=== PATIENT | male | born 1970 | race Caucasian/White ===

== ENCOUNTER 2016-09-25 01:55 | Emergency (ER) | payer BC ==
[2016-09-25] MEDS ORDERED: Acetaminophen/HYDROcodone 325-5 MG Tab PO STA (02:05)
[2016-09-25] MEDS ORDERED: Amoxicillin/Clavulanate K 875-125 MG Tab PO ONE (02:06)
--- NOTE | 2016-09-25 02:09 | EDM.PDOC ---
ED HPI GENERAL MEDICAL PROBLEM - General Stated Complaint: TOOTHACHE Time Seen by Provider: 09/25/16 01:55 Source of Information: Reports: Patient History Limitations: Reports: No Limitations - History of Present Illness INITIAL COMMENTS - FREE TEXT/NARRATIVE: 46 years old w m -smoker-came to the ed with upper and lower tooth ache. 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, NSAIDS - Related Data Allergies Allergy/AdvReac Type Severity Reaction Status Date / Time cephalexin monohydrate Allergy Swelling Verified 03/21/16 00:25 [From Keflex] hydrochlorothiazide Allergy Blisters Verified 03/21/16 00:25 Home Meds: Home Meds metFORMIN [Glucophage] 1,000 mg PO BID 10/04/13 [History] Ibuprofen [Advil] 200 mg PO ASDIRECTED PRN 03/21/16 [History] glipiZIDE [Glipizide Xl] 10 mg PO ASDIRECTED 03/21/16 [History] Amoxicillin/Potassium Clav [Augmentin 875-125 Tablet] 1 each PO BID #20 tablet 09/25/16 [Rx] Past Medical History HEENT History: Reports: Hard of Hearing, Impaired Vision Cardiovascular History: Reports: High Cholesterol, Hypertension Respiratory History: Reports: Asthma Genitourinary History: Reports: Other (See Below) Other Genitourinary History: Kidney stones. Musculoskeletal History: Reports: Arthritis, Back Pain, Chronic Psychiatric History: Reports: Depression Endocrine/Metabolic History: Reports: Diabetes, Type II Other Endocrine/Metabolic History: Takes PO meds for diabetes. - Past Surgical History Musculoskeletal Surgical History: Reports: Other (See Below) Social & Family History - Tobacco Use Smoking Status *Q: Current Every Day Smoker Years of Tobacco use: 25 Packs/Tins Daily: 0.5 - Alcohol Use Days Per Week of Alcohol Use: 1 Number of Drinks Per Day: 2 Total Drinks Per Week: 2 - Recreational Drug Use Recreational Drug Use: No - Living Situation & Occupation Living situation: Reports: Occupation: Other ED ROS ENT - Review of Systems Review Of Systems: See Below Constitutional: Reports: No Symptoms HEENT: Reports: Dental Pain Respiratory: Reports: No Symptoms Cardiovascular: Reports: No Symptoms Endocrine: Reports: No Symptoms GI/Abdominal: Reports: No Symptoms : Reports: No Symptoms Musculoskeletal: Reports: No Symptoms Skin: Reports: No Symptoms Neurological: Reports: No Symptoms Psychiatric: Reports: No Symptoms Hematologic/Lymphatic: Reports: No Symptoms Immunologic: Reports: No Symptoms ED EXAM, ENT - Physical Exam Exam: See Below Exam Limited By: No Limitations General Appearance: Alert, WD/WN, Mild Distress Eye Exam: Bilateral Eye: Normal Inspection Ears: Normal External Exam Nose: Normal Inspection Mouth/Throat: Dental Pain, Dental Tenderness, Gum Swelling (gingivitis) Head: Atraumatic, Normocephalic Neck: Normal Inspection, Supple, Non-Tender, Full Range of Motion Respiratory/Chest: No Respiratory Distress, Lungs Clear Cardiovascular: Normal Peripheral Pulses, Regular Rate, Rhythm GI/Abdominal: Normal Bowel Sounds, Soft, Non-Tender (Male) Exam: Deferred Rectal (Males) Exam: Deferred Back: Normal Inspection, Full Range of Motion Extremities: Normal Inspection, Normal Range of Motion, Non-Tender Neurological: Alert, Oriented, CN II-XII Intact, Normal Cognition, Normal Gait Psychiatric: Normal Affect, Normal Mood Skin: Warm, Dry, Intact, Normal Color, No Rash Lymphatic: No Adenopathy Course - Vital Signs Text/Narrative:: 46 years old w m -smoker-came to the ed with upper and lower tooth ache. No other acute medical issue PE: Poor dentition, gum swelling, dental decay. Impression: Poor dentition, gum swelling, dental decay Tx: [place], Augmentin Reexam: Improved Plan: D/C with instructions Last Recorded V/S: Last Vital Signs Temp 36.4 C 09/25/16 02:19 Pulse 92 09/25/16 02:19 Resp 18 09/25/16 02:19 BP 131/89 09/25/16 02:19 Pulse Ox - Orders/Labs/Meds Meds: Medications Discontinued Medications Generic Name Dose Route Start Last Admin Trade Name Freq PRN Reason Stop Dose Admin Hydrocodone Bitart/Acetaminophen 1 tab 09/25/16 02:05 [place] 325-5 Mg PO 09/25/16 02:06 ONETIME STA Amoxicillin/Clavulanate Potassium 1 tab 09/25/16 02:06 Augmentin 875 Mg/125 Mg PO 09/25/16 02:07 ONETIME ONE Departure - Departure Time of Disposition: 02:09 Disposition: Home, Self-Care 01 Condition: Good Clinical Impression: Poor dentition, Dental decay, Gingivitis - Discharge Information Prescriptions: Amoxicillin/Potassium Clav [Augmentin 875-125 Tablet] 1 each PO BID #20 tablet Referrals: Rodolfo Cruz MD [Primary Care Provider] - Additional Instructions: Please f/u with your dentist as soon as possible. Please take [place] for sever pain only, please take Augmentin as recommended, please quit tobacco use. Please come back if your symptoms get worse acutely
[2016-09-25 02:25] VITALS: BP 131/89
[2016-09-25] MEDS ORDERED: Acetaminophen/HYDROcodone 325-5 MG Tab PO ONE (02:34)
== END 2016-09-25 03:00 | disposition home or self-care (01) ==
LOC: FB.ED 01:55
DX: K02.9 Dental caries, unspecified (principal); K05.10 Chronic gingivitis, plaque induced; K00.7 Teething syndrome; E78.00 Pure hypercholesterolemia, unspecified; I10 Essential (primary) hypertension; J45.909 Unspecified asthma, uncomplicated; M19.90 Unspecified osteoarthritis, unspecified site; E11.9 Type 2 diabetes mellitus without complications; F17.210 Nicotine dependence, cigarettes, uncomplicated; F32.9 Major depressive disorder, single episode, unspecified; Z88.1 Allergy status to other antibiotic agents; Z79.84 Long term (current) use of oral hypoglycemic drugs; Z79.899 Other long term (current) drug therapy
CPT/HCPCS: 99282; A9270